=== PATIENT | male | born 1990 | race Caucasian/White ===

== ENCOUNTER 2017-03-29 10:28 | Outpatient (CLI) | payer BC | END 2017-03-29 10:29 | disposition critical access hospital (66) | LOC: EMS 10:28 | PROVIDERS: ATTEND Surgery | DX: R55 Syncope and collapse (principal) | CPT/HCPCS: A0425; A0427 ==

== ENCOUNTER 2017-03-29 10:56 | Emergency (ER) | payer BC ==
[2017-03-29] MEDS ORDERED: SODIUM CHLORIDE 0.9% 1,000 ML IV ONE ×2 (12:21→12:37)
--- NOTE | 2017-03-29 12:24 | ED Physician Documentation ---
History of Present Illness - Stated complaint Stated Complaint: SYNCOPE X 2 - Chief complaint Chief Complaint: Cardiac - History obtained from History obtained from: Patient - History of Present Illness Timing: Today Pain level max: 0 Pain level now: 0 - Additonal information Additional information: Patient is a 26-year-old male who presents to the emergency department with chief complaint of not feeling well today. He has had a syncopal event while at work. 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 Lasted for a few seconds. No head injury. No current complaints. No chest pain. No shortness of breath. He states he has been taking NyQuil at home. States his appetite has been decent. Review of Systems Ten Systems: 10 systems reviewed and negative Constitutional: reports: Chills, Myalgias. denies: Fever Ears: denies: Ear pain Nose: reports: Rhinorrhea / runny nose, Congestion Throat: reports: Sore throat Cardiac: denies: Chest pain / pressure Respiratory: denies: Cough, Wheezing GI: denies: Abdominal Pain, Nausea, Vomiting, Diarrhea Skin: denies: Rash Musculoskeletal: denies: Neck pain, Back pain Neurologic: denies: Focal weakness, Numbness, Headache PD PAST MEDICAL HISTORY - Past Medical History Past Medical History: No - Past Surgical History Past Surgical History: No General: Appendectomy - Present Medications Home Medications: Ambulatory Orders Medication Instructions Recorded Confirmed No Known Home Medications [No 03/29/17 03/29/17 Known Home Medications] - Allergies Allergies/Adverse Reactions: Allergies Allergy/AdvReac Type Severity Reaction Status Date / Time No Known Drug Allergies Allergy Verified 03/29/17 11:10 - Social History Does the pt smoke?: Yes Smoking Status: Current every day smoker Does the pt drink ETOH?: Yes Does the pt have substance abuse?: No - Immunizations Immunizations are current?: Yes - POLST Patient has POLST: No PD ED PE NORMAL - Vitals Vital signs reviewed: Yes - General General: Alert and oriented X 3, No acute distress, Well developed/nourished - HEENT HEENT: Atraumatic, PERRL, EOMI, Moist mucous membranes, Pharynx benign - Neck Neck: Supple, no meningeal sign, No bruit - Cardiac Cardiac: RRR, No murmur, Strong equal pulses - Respiratory Respiratory: No respiratory distress, Clear bilaterally - Abdomen Abdomen: Normal bowel sounds, Soft, Non tender, Non distended - Back Back: No CVA TTP, No spinal TTP - Derm Derm: Warm and dry - Extremities Extremities: No edema, No calf tenderness / cord - Neuro Neuro: Alert and oriented X 3, meeting/event planner 2-12 intact, No motor deficit, No sensory deficit, Normal speech Eye Opening: Spontaneous Motor: Obeys Commands Verbal: Oriented GCS Score: 15 - Psych Psych: Normal mood, Normal affect Results - Vitals Vitals: Vital Signs - 24 hr 03/29/17 03/29/17 03/29/17 11:00 11:16 12:25 Temperature 36.7 C Heart Rate 57 L 74 Respiratory 20 18 Rate Blood Pressure 113/61 118/60 Blood Pressure 113/61 [Left] Blood Pressure 110/58 L [Right] O2 Saturation 100 100 03/29/17 03/29/17 13:27 14:25 Temperature Heart Rate 74 55 L Respiratory 16 16 Rate Blood Pressure 113/56 L 111/62 Blood Pressure [Left] Blood Pressure [Right] O2 Saturation 98 99 Oxygen O2 Source Room air - EKG (time done) 1104 Rate: Rate (enter#) (54) Rhythm: NSR Sigourney: Normal Intervals: Normal MA QRS: Normal Ischemia: Normal ST segments Computer interpretation: Agree with computer - Labs Labs: Laboratory Tests 03/29/17 03/29/17 03/29/17 12:42 12:42 12:42 WBC 14.3 H RBC 4.86 Hgb 14.5 Hct 42.5 MCV 87.4 MCH 29.8 MCHC 34.1 RDW 12.8 Plt Count 197 MPV 7.3 L Neut # 12.1 H Lymph # 1.4 L Churchill # 0.5 Eos # 0.2 Baso # 0.1 Absolute Nucleated RBC 0.00 Nucleated RBC % 0.0 Sodium 138 Potassium 3.5 Chloride 104 Carbon Dioxide 25 Anion Gap 9.0 BUN 14 Creatinine 0.7 Estimated GFR (MDRD) 137 Glucose 87 Calcium 8.9 Total Bilirubin 0.7 AST 28 ALT 31 Alkaline Phosphatase 53 Troponin I < 0.04 Total Protein 6.5 L Albumin 4.4 Globulin 2.1 Albumin/Globulin Ratio 2.1 Lipase 23 Urine Color Urine Clarity Urine pH Ur Specific [place] Urine Protein Urine Glucose (UA) Urine Ketones Urine Occult Blood Urine Nitrite Urine Bilirubin Urine Urobilinogen Ur Leukocyte Esterase Ur Microscopic Review Urine Culture Comments 03/29/17 13:00 WBC RBC Hgb Hct MCV MCH MCHC RDW Plt Count MPV Neut # Lymph # Churchill # Eos # Baso # Absolute Nucleated RBC Nucleated RBC % Sodium Potassium Chloride Carbon Dioxide Anion Gap BUN Creatinine Estimated GFR (MDRD) Glucose Calcium Total Bilirubin AST ALT Alkaline Phosphatase Troponin I Total Protein Albumin Globulin Albumin/Globulin Ratio Lipase Urine Color YELLOW Urine Clarity CLEAR Urine pH 7.0 Ur Specific [place] 1.015 Urine Protein NEGATIVE Urine Glucose (UA) NEGATIVE Urine Ketones NEGATIVE Urine Occult Blood NEGATIVE Urine Nitrite NEGATIVE Urine Bilirubin NEGATIVE Urine Urobilinogen 0.2 (NORMAL) Ur Leukocyte Esterase NEGATIVE Ur Microscopic Review NOT INDICATED Urine Culture Comments NOT INDICATED - Rads (name of study) cxr Radiology: Prelim report reviewed, EMP read contemporaneously, See rad report ( No acute disease) PD MEDICAL DECISION MAKING - ED course Complexity details: reviewed results, re-evaluated patient, considered differential, d/w patient, d/w family ED course: Patient is a 26-year-old male who presents to the emergency department after syncopal event today. Has passed out in the past. No cause found. No acute findings on EKG, telemetry, laboratory testing. Feels better after IV fluids. We will continue supportive care and follow-up with his doctor. No evidence of arrhythmia. No family history of cardiac disease, especially young cardiac disease. No murmur. Patient counseled regarding signs and symptoms for which I believe and urgent re-evaluation would be necessary. Patient with good understanding of and agreement to plan and is comfortable going home at this time This document was made in part using voice recognition software. While efforts are made to proofread this document, sound alike and grammatical errors may occur. Departure - Departure Disposition: 01 Home, Self Care Clinical Impression: Viral syndrome Syncope Qualifiers: Syncope type: vasovagal syncope Qualified Code(s): R55 - Syncope and collapse Condition: Good Instructions: ED Fainting Unkn Cause, ED Viral Syndrome Follow-Up: your,doctor in 1 week [Other] Comments: Your tests are normal today. Return if you worsen. Do not go to work this weekend. Discharge Date/Time: 03/29/17 14:51
[2017-03-29 12:49] LABS: BASOPHILS # (AUTO) 0.1 10^3/uL (0.0-0.1); BASOPHILS % (AUTO) 0.5 %; EOSINOPHILS # (AUTO) 0.2 10^3/uL (0.0-0.7); EOSINOPHILS % (AUTO) 1.3 %; HGB - HEMOGLOBIN 14.5 g/dL (14.0-18.0); LYMPHOCYTES # (AUTO) 1.4 10^3/uL (1.5-3.5); LYMPHOCYTES % (AUTO) 9.7 %; MEAN CORPUSCULAR HEMOGLOBIN 29.8 pg (27.0-31.0); MEAN CORPUSCULAR HGB CONC 34.1 g/dL (32.0-36.0); MEAN CORPUSCULAR VOLUME 87.4 fL (80.0-94.0); MEAN PLATELET VOLUME 7.3 fL (7.4-11.4); MONOCYTES # (AUTO) 0.5 10^3/uL (0.0-1.0); MONOCYTES % (AUTO) 3.8 %; NEUTROPHILS # (AUTO) 12.1 10^3/uL (1.5-6.6); NEUTROPHILS % (AUTO) 84.7 %; PLT - PLATELET COUNT 197 10^3/uL (130-450); RED BLOOD COUNT 4.86 10^6/uL (4.70-6.10); RED CELL DISTRIBUTION WIDTH 12.8 % (12.0-15.0); WHITE BLOOD COUNT 14.3 x10^3/uL (4.8-10.8)
[2017-03-29 13:04] LABS: ALBUMIN 4.4 g/dL (3.2-5.5); ALBUMIN/GLOBULIN RATIO 2.1 (1.0-2.2); BILIRUBIN,TOTAL 0.7 mg/dL (0.2-1.0); CALCIUM 8.9 mg/dL (8.5-10.3); CREATININE 0.7 mg/dL (0.6-1.2); TOTAL PROTEIN 6.5 g/dL (6.7-8.2)
--- NOTE | 2017-03-29 13:06 | XRAY Report ---
EXAM: CHEST RADIOGRAPHY EXAM DATE: 03/29/2017 12:54 PM. CLINICAL HISTORY: Syncope. COMPARISON: None. TECHNIQUE: 1 view. FINDINGS: Lungs/Pleura: Clear. No effusion or pneumothorax. Mediastinum: Within exam limitations, the cardiomediastinal contour is normal. Upper lobe vessels not distended. Other: None. IMPRESSION: Normal single view chest. [facility] Referring Provider Line: [phone] SITE ID: [id number]
[2017-03-29 13:42] LABS: BILIRUBIN,URINE NEGATIVE (NEGATIVE); CLARITY,URINE CLEAR (CLEAR); GLUCOSE, URINE (UA) NEGATIVE (NEGATIVE); KETONES,URINE (UA) NEGATIVE (NEGATIVE); LEUKOCYTE ESTERASE, URINE NEGATIVE (NEGATIVE); NITRITE,URINE NEGATIVE (NEGATIVE); OCCULT BLOOD,URINE NEGATIVE (NEGATIVE); PROTEIN,URINE NEGATIVE (NEGATIVE); UROBILINOGEN,URINE 0.2 (NORMAL) E.U./dL (NORMAL)
[2017-03-29 14:26] VITALS: BP 111/62
== END 2017-03-29 14:51 | disposition home or self-care (01) ==
LOC: EDUNIT# → ED 10:56
DX: R55 Syncope and collapse (principal); B34.9 Viral infection, unspecified; F17.200 Nicotine dependence, unspecified, uncomplicated
CPT/HCPCS: 36415; 71045; 80053; 81001; 81003; 83690; 84484; 85025; 87086; 93005; 96360; 96361; 99283; 99284

== ENCOUNTER 2021-05-15 07:39 | Emergency (ER) | payer BC, OTHER ==
[2021-05-15] MEDS ORDERED: CYCLOBENZAPRINE 10 MG TABLET PO STA (08:19)
[2021-05-15] MEDS ORDERED: HYDROmorphone 1 MG/ML CARPUJECT IM STA (08:19)
[2021-05-15] MEDS ORDERED: KETOROLAC 60 MG/2 ML VIAL IM STA (08:19)
[2021-05-15 08:44] LABS: BASOPHILS % (AUTO) 0.4 %; EOSINOPHILS # (AUTO) 0.1 10^3/uL (0.0-0.7); EOSINOPHILS % (AUTO) 1.1 %; HCT - HEMATOCRIT 49.9 % (42.0-52.0); HGB - HEMOGLOBIN 17.6 g/dL (14.0-18.0); LYMPHOCYTES # (AUTO) 1.3 10^3/uL (1.5-3.5); LYMPHOCYTES % (AUTO) 16.8 %; MEAN CORPUSCULAR HEMOGLOBIN 31.7 pg (27.0-31.0); MEAN CORPUSCULAR HGB CONC 35.3 g/dL (32.0-36.0); MEAN CORPUSCULAR VOLUME 89.7 fL (80.0-94.0); MEAN PLATELET VOLUME 9.9 fL (7.4-11.4); MONOCYTES # (AUTO) 0.6 10^3/uL (0.0-1.0); MONOCYTES % (AUTO) 7.4 %; NEUTROPHILS # (AUTO) 5.5 10^3/uL (1.5-6.6); PLT - PLATELET COUNT 180 10^3/uL (130-450); RED BLOOD COUNT 5.56 10^6/uL (4.70-6.10); RED CELL DISTRIBUTION WIDTH 11.9 % (12.0-15.0); WHITE BLOOD COUNT 7.4 x10^3/uL (4.8-10.8)
--- NOTE | 2021-05-15 08:45 | ED Physician Documentation ---
History of Present Illness - Stated complaint Stated Complaint: BACK PX - Chief complaint Chief Complaint: Back Pain - History obtained from History obtained from: Patient - Additonal information Additional information: The patient comes to the emergency department chief complaint of low back pain after a sneeze. The patient states he has had a cold for the last several days and sneezed this morning around 7. He felt a sudden searing pain in his low back, just to the right of his spine, which caused his whole body to "seize up". He states it is hard to take a deep breath because everything was so tense. The patient states hurts about his had to help him get back into bed and he fainted. The patient states that he had some numbness and tingling going down his legs initially and some tingling in his arms but this is all resolved. He denies any loss of bowel or bladder control. The patient states he is partly here because he and his are worried that "something bigger" could be going on to be causing his pain. He states he has been sick more than usual over the last year. He had a large weight loss about a year ago of approximately 45 pounds, which he attributes to being busy and stressed with work. He states he was not trying to lose weight. He has not had any further weight loss since then. He states that he is had 2 other fainting episodes in the last 3 years the most recent of which before this was 6 months ago. He states that 1 was associated with having been sitting down for long period of time and then getting up and walking around. Another 1 was associated with being exposed for prolonged period of time to exhaust. The patient states that his father was recently diagnosed with a blood clot and that given the episode 6 months ago worried been sitting for a long time and then fainted after getting up, he is wondering if he had a large blood clot that was "cutting off circulation". He denies any edema or pain in his calves. No chest pain or shortness of breath currently. No fevers. No recent immobility, although that patient has been resting more recently because he was sick. He admits to not drinking as much water as he probably should but was been drinking more than usual recently because of not feeling well. No other complaints at this time. Review of Systems Ten Systems: 10 systems reviewed and negative Constitutional: reports: Reviewed and negative Eyes: reports: Reviewed and negative Ears: reports: Reviewed and negative Nose: reports: Reviewed and negative Throat: reports: Reviewed and negative Cardiac: reports: Reviewed and negative Respiratory: reports: Reviewed and negative GI: reports: Reviewed and negative. denies: Nausea, Vomiting : reports: Reviewed and negative. denies: Dysuria, Frequency, Incontinent, Hematuria Skin: reports: Reviewed and negative Musculoskeletal: reports: Back pain. denies: Extremity pain Neurologic: reports: Syncope Psychiatric: reports: Reviewed and negative Endocrine: reports: Reviewed and negative Immunocompromised: reports: Reviewed and negative PD PAST MEDICAL HISTORY - Past Surgical History Past Surgical History: No General: Appendectomy - Present Medications Home Medications: Ambulatory Orders Medication Instructions Recorded Confirmed Cyclobenzaprine [Flexeril] 10 mg PO TID PRN #20 tablet 05/15/21 HYDROcod/ACETAM 5/325 [Ames 5/325] 1 - 2 tablet PO Q6H PRN #14 tablet 05/15/21 - Allergies Allergies/Adverse Reactions: Allergies Allergy/AdvReac Type Severity Reaction Status Date / Time No Known Drug Allergies Allergy Verified 05/15/21 07:54 - Social History Does the pt smoke?: Yes Smoking Status: Current every day smoker Does the pt drink ETOH?: Yes Does the pt have substance abuse?: No - Immunizations Immunizations are current?: Yes - POLST Patient has POLST: No PD ED PE NORMAL - Vitals Vital signs reviewed: Yes - General General: Alert and oriented X 3, No acute distress, Well developed/nourished, Other (The patient appears moderately uncomfortable, holding his low back, hunching forward, and moving slowly, but otherwise no apparent distress.) - HEENT HEENT: Atraumatic, PERRL, EOMI, Moist mucous membranes - Neck Neck: Supple, no meningeal sign, No bony TTP - Cardiac Cardiac: RRR, No murmur, Strong equal pulses - Respiratory Respiratory: No respiratory distress, Clear bilaterally - Abdomen Abdomen: Soft, Non tender, Non distended - Back Back: No spinal TTP, Other (Soft tissue tenderness immediately adjacent to lumbar spine On the right. No spinal step-off or other deformity.) - Derm Derm: Normal color, Warm and dry, No rash - Extremities Extremities: No deformity, No edema, No calf tenderness / cord - Neuro Neuro: Alert and oriented X 3 - Psych Psych: Normal mood, Normal affect Results - Vitals Vitals: Vital Signs - 24 hr 05/15/21 05/15/21 07:48 09:40 Temperature 36.5 C 37.2 C Heart Rate 66 59 L Respiratory 20 14 Rate Blood Pressure 115/65 105/63 O2 Saturation 98 98 Oxygen O2 Source Room air - Labs Labs: Laboratory Tests 05/15/21 05/15/21 05/15/21 08:38 08:38 09:00 WBC 7.4 RBC 5.56 Hgb 17.6 Hct 49.9 MCV 89.7 MCH 31.7 H MCHC 35.3 RDW 11.9 L Plt Count 180 MPV 9.9 Neut # (Auto) 5.5 Lymph # (Auto) 1.3 L Norman # (Auto) 0.6 Eos # (Auto) 0.1 Baso # (Auto) 0.0 Absolute Nucleated RBC 0.00 Nucleated RBC % 0.0 Sodium 141 Potassium 4.4 Chloride 103 Carbon Dioxide 27 Anion Gap 11.0 BUN 9 Creatinine 0.9 Estimated GFR (MDRD) 99 Glucose 105 H Calcium 9.6 Total Bilirubin 0.7 AST 27 ALT 25 Alkaline Phosphatase 61 Total Protein 7.5 Albumin 4.8 Globulin 2.7 Albumin/Globulin Ratio 1.8 Lipase 31 Nasal Adenovirus (PCR) NOT DETECTED Nasal B. parapertussis DNA (PCR) NOT DETECTED Nasal Coronavir 229E PCR NOT DETECTED Nasal Coronavir HKU1 PCR NOT DETECTED Nasal Coronavir NL63 PCR NOT DETECTED Nasal Coronavir OC43 PCR NOT DETECTED Nasal Enterovir/Rhinovir PCR NOT DETECTED Nasal Influenza B PCR NOT DETECTED Nasal Influenza A PCR NOT DETECTED Nasal Parainfluen 1 PCR NOT DETECTED Nasal Parainfluen 2 PCR NOT DETECTED Nasal Parainfluen 3 PCR NOT DETECTED Nasal Parainfluen 4 PCR NOT DETECTED Nasal RSV (PCR) NOT DETECTED Nasal B.pertussis DNA PCR NOT DETECTED Nasal C.pneumoniae (PCR) NOT DETECTED Joe Human Metapneumo PCR NOT DETECTED Nasal M.pneumoniae (PCR) NOT DETECTED Nasal SARS-CoV-2 (PCR) DETECTED A PD MEDICAL DECISION MAKING - ED course Complexity details: reviewed results, re-evaluated patient, considered differential, d/w patient ED course: I had a long discussion with the patient that he has some very chronic issues for which he has not seen his primary care physician. Given that his syncopal episodes have been very spreadout, it is difficult to establish a pattern. Certainly a PE would have been possible since 6 months ago, though a saddle embolus large enough to cause a syncopal episode would be very likely to have caused more symptoms, such as chest pain or shortness of breath which the patient has never had. Patient does not have any evidence of a DVT at this point in time and most likely fainted due to combination of the degree of back pain as well as the fact that he is not been feeling well lately and is probably more prone to fainting at baseline anyway, given his history of multiple syncopal episodes. I discussed with him the importance of following up with his primary care physician for ongoing, long-term concerns. After patient's departure, his respiratory PCR came back positive for Covid. The patient was called at home and advised of his results. Departure - Departure Disposition: Home, Self Care Clinical Impression: Viral illness Lumbar back sprain Qualifiers: Encounter type: initial encounter Qualified Code(s): S33.5XXA - Sprain of ligaments of lumbar spine, initial encounter Syncopal episodes Qualifiers: Syncope type: unspecified Qualified Code(s): R55 - Syncope and collapse Instructions: ED Exercises Lumbar Muscles, ED Sprain Strain Lumbar, ED Fainting Unkn Cause, ED Viral Syndrome Prescriptions: Cyclobenzaprine [Flexeril] 10 mg PO TID PRN #20 tablet PRN Reason: Spasms HYDROcod/ACETAM 5/325 [Ames 5/325] 1 - 2 tablet PO Q6H PRN #14 tablet PRN Reason: Pain Comments: Your blood work and EKG look good. The pain you are having, both in location and cause, is consistent with a soft tissue strain, most likely of the tendon or ligament connections adjacent to your spine. Generally, these sorts of injuries will heal on their own over the course of several weeks, with gradual improvement from the first couple of days after injury. If you are not feeling noticeably better in the next 2 weeks, then you should talk to your primary doc tor about having a follow-up MRI. As far as the ongoing bouts of illness over the last year or so, as well as the fainting episodes that you have had over the last 3 years, it is very important that you follow-up with your primary care physician. Your blood work and EKG look good today, but the emergency department is not the appropriate setting to evaluate more chronic issues. There is no evidence of an emergent condition today. Please call your doctors office to make the next available appointment to follow-up on these concerns and to discuss wearing an event monitor. You may take the medication prescribed as needed for pain. Your prescriptions have been electronically transmitted to [facility] pharmacy in [place]. Discharge Date/Time: 05/15/21 09:40
[2021-05-15 08:58] LABS: ALBUMIN 4.8 g/dL (3.2-5.5); ALBUMIN/GLOBULIN RATIO 1.8 (1.0-2.2); BILIRUBIN,TOTAL 0.7 mg/dL (0.2-1.0); CALCIUM 9.6 mg/dL (8.5-10.3); CREATININE 0.9 mg/dL (0.6-1.2); POTASSIUM 4.4 mmol/L (3.5-5.0); TOTAL PROTEIN 7.5 g/dL (6.7-8.2)
[2021-05-15 09:42] VITALS: BP 105/63
[2021-05-15 10:19] LABS: B. PARAPERTUSSIS- RESP PCR PAN NOT DETECTED; B. PERTUSSIS- RESP PCR PANEL NOT DETECTED; C. PNEUMONIAE- RESP PCR PANEL NOT DETECTED; CORONAVIRUS 229E-RESP PCR NOT DETECTED; CORONAVIRUS HKU1-RESP PCR NOT DETECTED; CORONAVIRUS NL63-RESP PCR NOT DETECTED; CORONAVIRUS OC43-RESP PCR NOT DETECTED; HUMAN METAPNEUMOVIRUS NOT DETECTED; INFLUENZA A- RESP PCR PANEL NOT DETECTED; INFLUENZA B - RESP PCR PANEL NOT DETECTED; M. PNEUMONIAE- RESP PCR PANEL NOT DETECTED; PARAINFLUENZA VIRUS 1 NOT DETECTED; PARAINFLUENZA VIRUS 2 NOT DETECTED; PARAINFLUENZA VIRUS 3 NOT DETECTED; PARAINFLUENZA VIRUS 4 NOT DETECTED; RHINOVIRUS/ENTEROVIRUS NOT DETECTED; RSV- RESP PCR PANEL NOT DETECTED
[2021-05-15 10:22] LABS: SARS-CoV-2 -RESP PCR PANEL DETECTED
== END 2021-05-15 09:40 | disposition home or self-care (01) ==
LOC: ED 07:39
DX: U07.1 COVID-19 (principal); S33.5XXA Sprain of ligaments of lumbar spine, initial encounter; X58.XXXA Exposure to other specified factors, initial encounter; B34.9 Viral infection, unspecified; F17.200 Nicotine dependence, unspecified, uncomplicated
CPT/HCPCS: 0202U; 36415; 80053; 83690; 85025; 93005; 96372; 99282; 99283; A9270; J1170

== ENCOUNTER 2023-02-07 11:25 | Day surgery (SDC) | payer OTHER ==
[~2023-02-07 11:25] MED LIST: BUPIVACAINE 0.25% PF 30 ML VIAL ONE; LIDOCAINE-MPF 1% 30 ML VIAL ONE; ceFAZolin 2 GM VIAL ONE
[2023-02-07] MEDS ORDERED: ATROPINE ABBOJECT 1 MG/10 ML SYRINGE IVP PRN (11:27)
[2023-02-07] MEDS ORDERED: MORPHINE 2 MG/ML CARPUJECT IVP PRN (11:27)
[2023-02-07] MEDS ORDERED: ONDANSETRON 4 MG/2 ML VIAL IVP PRN (11:27)
[2023-02-07] MEDS ORDERED: NALOXONE 0.4 MG/ML VIAL IVP PRN (11:27)
[2023-02-07] MEDS ORDERED: HYDROmorphone 0.5 MG/0.5 ML SYRINGE IVP PRN ×2 (11:27→14:38)
[2023-02-07] MEDS ORDERED: fentaNYL 100 MCG/2 ML VIAL IVP PRN (11:27)
[2023-02-07] MEDS ORDERED: LACTATED RINGERS 1,000 ML IV ONE ×2 (11:34→14:30)
[2023-02-07] MEDS ORDERED: LACTATED RINGERS 1,000 ML IV SCH (12:00)
[2023-02-07] MEDS ORDERED: SCOPOLAMINE PATCH TOP SCH (12:00)
--- NOTE | 2023-02-07 12:32 | ANESTHESIA ---
Pre-Anesthesia VS, & Labs - Diagnosis Left Inguinal Hernia - Procedure left Inguinal Hernia Repair Vital Signs: Temp Pulse Resp BP Pulse Ox O2 Flow Rate 36.7 C 70 16 140/90 H 96 02/07/23 11:47 02/07/23 11:47 02/07/23 11:47 02/07/23 11:47 02/07/23 11:47 Height: 6 ft 2 in Weight (kg): 89.9 kg Body Mass Index: 25.4 BMI Classification: Overweight - NPO Last Fluid Intake: 0900 h2o Home Medications and Allergies Home Medications: Ambulatory Orders No Known Home Medications 02/01/23 Active Medications Atropine Sulfate (Atropine Abboject 1 Mg/10 Ml Syringe) 0.5 mg IVP Q5M PRN PRN Reason: Bradycardia Stop: 02/08/23 11:27 Fentanyl (Fentanyl 100 Mcg/2 Ml Vial) 25 - 50 mcg IVP Q5M PRN PRN Reason: BREAKTHROUGH PAIN (2nd Choice) Stop: 02/08/23 11:27 Hydromorphone HCl (Hydromorphone 0.5 Mg/0.5 Ml Syringe) 0.2 - 0.6 mg IVP Q5M PRN PRN Reason: PAIN (First Choice) Stop: 02/08/23 11:27 Lactated Ringer's (Lr) 1,000 mls @ 100 mls/hr IV .Q10H JAYLYN Stop: 02/07/23 21:59 Morphine Sulfate (Morphine 2 Mg/Ml Carpuject) 2 - 4 mg IVP Q5M PRN PRN Reason: PAIN (3rd Choice) Stop: 02/08/23 11:27 Naloxone HCl (Naloxone 0.4 Mg/Ml Vial) 0.1 mg IVP Q2M PRN PRN Reason: RESP RATE <8 Stop: 02/08/23 11:27 Ondansetron HCl (Ondansetron 4 Mg/2 Ml Vial) 4 mg IVP ONCE PRN PRN Reason: N/V (First Choice) Stop: 02/08/23 11:27 Scopolamine HBr (Scopolamine Patch) 1 patch TOP Q3D JYALYN Last Admin: 02/07/23 11:50 Dose: 1 patch No Known Home Medications 02/01/23 Allergies/Adverse Reactions: Allergies Allergy/AdvReac Type Severity Reaction Status Date / Time No Known Drug Allergies Allergy Verified 05/15/21 07:54 Anes History & Medical History - Anesthetic History Anesthesia Complications: reports: No previous complications - Medical History Cardiovascular: reports: None Pulmonary: reports: None Gastrointestinal: reports: None Urinary: reports: None Neuro: reports: None Musculoskeletal: reports: None Endocrine/Autoimmune: reports: None Blood Disorders: reports: None Skin: reports: Eczema Smoking Status: Current every day smoker (1/2 pack per day 6 years) Psychosocial: reports: Alcohol (6 pack every other day), Cannabis History of Cancer?: No - Surgical History General: reports: Appendectomy Exam General: Alert, Oriented x3, No acute distress Dental: WNL Mouth Openin Fingerbreadth Neck Mobility: Normal Mallampati classification: II Thyromental Distance: 4-6 cm Mental/Cognitive Status: Alert/Oriented X3, Normal for patient Plan Anesthesia Type: General Consent for Procedure(s) Verified and Reviewed: Yes Code Status: Attempt Resuscitation ASA classification: 2-Mild systemic disease Is this case an emergency?: No
[2023-02-07] MEDS ORDERED: PROPOFOL 200 MG/20 ML VIAL IVP ONE (12:51)
[2023-02-07] MEDS ORDERED: fentaNYL 100 MCG/2 ML VIAL ONE ×2 (12:51→13:31)
[2023-02-07] MEDS ORDERED: MIDAZOLAM 2 MG/2 ML VIAL ONE (12:51)
--- NOTE | 2023-02-07 13:00 | HISTORY & PHYSICAL EXAMINATION ---
Chief Complaint - Chief Complaint Chief Complaint: here for hernia surgery History of Present Illness - History Obtained From Records Reviewed: yes History obtained from: pt Exam Limitations: none - History of Present Illness HPI Comment/Other: large and symptomatic left inguinal hernia History - Past Medical History Cardiovascular: reports: None Respiratory: reports: None Neuro: reports: None Endocrine/Autoimmune: reports: None GI: reports: None : reports: None HEENT: reports: None Psych: reports: None Musculoskeletal: reports: None Derm: reports: Eczema MRSA Hx?: No - Past Surgical History General: reports: Appendectomy - POLST Patient has POLST: No Meds/Allgy - Home Medications Home Medications: Ambulatory Orders Medication Instructions Recorded Confirmed No Known Home Medications 02/01/23 02/01/23 - Allergies Allergies/Adverse Reactions: Allergies Allergy/AdvReac Type Severity Reaction Status Date / Time No Known Drug Allergies Allergy Verified 05/15/21 07:54 Review of Systems - Other Findings Other Findings: 10 pt ros as above otherwise unremarkable Exam - Vital Signs Vital Signs: Vital Signs x48h Temp Pulse Resp BP Pulse Ox 02/07/23 11:47 36.7 C 70 16 140/90 H 96 - Physical Exam General Appearance: positive: No acute distress, Alert Eyes Bilateral: positive: PERRL, EOMI ENT: positive: No signs of dehydration Neck: positive: No JVD, Trachea midline Respiratory: positive: Breath sounds nml Cardiovascular: positive: Regular rate & rhythm Abdomen: positive: Other (large left inguinal hernia present) Neurologic/Psychiatric: positive: Oriented x3 Conclusion/Plan - Problem List (1) Inguinal hernia of left side without obstruction or gangrene Conclusion/Plan: plan open repair with mesh. parq held and consent obtained.
[2023-02-07] MEDS ORDERED: BUPIVACAINE 0.25% PF 30 ML VIAL ONE (13:26)
[2023-02-07] MEDS ORDERED: BUPIVACAINE 0.25% PF 30 ML VIAL SUBQ ONE (13:32)
[2023-02-07] MEDS ORDERED: DEXAMETHASONE 4 MG/ML VIAL ONE (13:35)
[2023-02-07] MEDS ORDERED: ONDANSETRON 4 MG/2 ML VIAL ONE (13:35)
[2023-02-07] MEDS ORDERED: HYDROcod/ACETAM 5/325 MG TABLET PO PRN (14:38)
--- NOTE | 2023-02-07 14:44 | OPERATIVE REPORT ---
Operative Report - General Procedure Date: 02/07/23 Planned Procedure: open left inguinal hernia repair with mesh Pre-Op Diagnosis: left inguinal hernia Procedure Performed: open left inguinal hernia repair with mesh Post Op Diagnosis: indirect inguinal hernia - Procedure Note Primary Surgeon: jakub mccormack Anesthesia Technique: General LMA, Local Pathology: not sent Estimated Blood Loss (mL): 2 Drain/Tube Type: Other (none) Indications: large painful hernia Findings: as above Complications: none - Other Other Information/Narrative: Patient was properly identified brought to the operating room and placed in supine position. Sequential compression devices were placed. Laryngeal mask anesthesia was induced. He was prepped and draped in a sterile fashion and given preoperative antibiotics. Local anesthetic was given throughout the procedure. A 5 cm incision was made in the direction of Tamra's lines just cephalad of the pubic tubercle. Dissection proceeded with cutting current cautery. The superficial epigastric vein was identified clamped divided and tied with 3-0 Vicryl. Dissection proceeded down to the aponeurosis. The aponeurosis was opened in the direction of its fibers and extended to the external ring. Cord structures were mobilized and brought up. The nerves were carefully protected and preserved. Cord structures were mobilized and brought up. An indirect inguinal hernia was present. The hernia sac was mobilized off the cord structures and suture ligated with 2 O silk and further reduced. Preperitoneal fat was removed. The base was tied with 2 O vicryl. Polypropylene mesh was cut to size and with tails. The mesh was secured with multiple interrupted 0 Ethibond sutures. She was placed along the pubic tubercle, Holland's ligament area and along the shelving border of Poupart's ligament. Sutures were placed medially along the abdominal wall musculature and internal oblique. The medial tail of the mesh was secured to the shelving border of Poupart's ligament with 3 interrupted 0 ethibond sutures An additional suture was placed in the crotch of the mesh recreating an internal ring of appropriate size. Aponeurosis was closed with a running 2-0 Vicryl suture. Scarpas fascia was closed with interrupted 3-0 Vicryl suture. Buried interrupted subdermal 3-0 Vicryl sutures were then placed. Skin was closed with a running 4-0 Monocryl subcuticular suture. Dressing was applied. Patient was awakened and brought to recovery in good condition.
[2023-02-07] MEDS ORDERED: HYDROcod/ACETAM 5/325 MG TABLET ONE (15:21)
[2023-02-07 15:25] VITALS: BP 157/92; O2SAT 96
--- NOTE | 2023-02-07 21:40 | ANESTHESIA POST OP EVALUATION ---
Anesthesia Post Eval - Post Anesthesia Eval Vitals: Last Vital Signs Temp 36.2 C L 02/07/23 14:55 Pulse 72 02/07/23 15:15 Resp 16 02/07/23 15:15 BP 157/92 H 02/07/23 15:15 Pulse Ox 96 02/07/23 15:15 O2 Flow Rate CV Function Including HR & BP: Stable Pain Control: Satisfactory Nausea & Vomiting: Negative Mental Status: Baseline Respiratory Status: Airway Patent Hydration Status: Satisfactory Anesthesia Complications: None
== END 2023-02-07 11:26 | disposition home or self-care (01) ==
LOC: SDS 11:25
PROVIDERS: ATTEND Surgery
DX: K40.90 Unilateral inguinal hernia, without obstruction or gangrene, not specified as recurrent (principal); F17.200 Nicotine dependence, unspecified, uncomplicated
CPT/HCPCS: 49505; A9270; C1781; J3490; J7120